=== PATIENT | male | born 1955 | race Caucasian/White ===

== ENCOUNTER 2023-06-09 10:18 | Outpatient (CLI) | payer MEDICARE, SELFPAY ==
[2023-06-09 11:12] LABS: Anion Gap 5 mmol/L (8-16); Blood Urea Nitrogen 16 mg/dL (9-20); Calcium 9.8 mg/dL (8.4-10.2); Carbon Dioxide 31 mmol/L (22-30); Chloride 100 mmol/L (98-107); Estimated Glomerular Filt Rate > 60; Glucose 95 mg/dL (65-110); Potassium 4.5 mmol/L (3.4-5.0); Sodium 136 mmol/L (137-145)
== END 2023-06-09 10:19 | disposition home or self-care (01) ==
LOC: ANHSURGERY 10:28
PROVIDERS: Anesthesiology; Visit Provider Otolaryngology
DX: I10 Essential (primary) hypertension (principal); Z01.818 Encounter for other preprocedural examination
CPT/HCPCS: 36415; 80048

== ENCOUNTER 2023-06-14 00:48 | Day surgery (SDC) | payer MEDICARE, SELFPAY ==
--- NOTE | 2023-06-03 14:33 | PC.NURSE ---
Report to the Outpatient Waiting Room, entrance under the green pavilion located off [facility], at time __0600 on date _06/14/23 . Planned Procedure Time: __729 . Time changes happen often and if your time is changed the preop area will call you the afternoon before. - You and your visitor will be asked to self-screen and do not enter if you have any COVID symptoms. - A mask is optional within the hospital at this time. Patients may have clear liquids (water, carbonated beverages, clear teas, apple juice) until 3 hours prior to surgery with a maximum of 20 ounces. - No food from midnight until time of surgery - Infants may have breast milk until 4 hours before surgery, infant formula 6 hours prior to surgery. - Children will be allowed to drink immediately following surgery. If applicable, please bring a bottle or sippy cup to assist with drinking. Juice, water, soda, and popsicles are readily available. For infants on formula, please bring formula the day of surgery. Pacifiers are allowed. Take the following medications with a SIP of water the morning of surgery: ___CARVEDILOL,ISOSORBIDE DO NOT STOP ANY OF YOUR OTHER PRESCRIPTION MEDICATIONS PRIOR TO SURGERY ?EXCEPT THE FOLLOWING Medications to discontinue per physician __ASPIRIN PER DR MCGRAW Please no make-up, nail irish, hairspray, perfume, deodorant, or body powder the day of surgery. No jewelry (including any body piercings) or valuables the day of surgery, leave them at home. Please take a shower or bath the night before, or the morning of, surgery with an antibacterial soap. Wear comfortable, loose fitting clothing. Children are encouraged to wear pajamas. - Jewelry must be removed prior to entering the operating room. Rings and piercings that are not removed may be cut off. - The hospital will not accept responsibility for valuables. - Please leave all valuables, including medications, at home the day of surgery. If you are going home after surgery, a licensed fork truck driver must drive you home. - NO public transportation without another adult if you receive anesthesia. - We recommend that an adult stay with you for 24 hours following discharge. - We also recommend that you do not drive, make important decision, drink alcoholic beverages, or take any drugs that were not prescribed by your health care provider for at least 24 hours after your discharge time. For Pediatric surgeries, we recommend two adults accompany the child home. Follow any additional instructions given to you from your surgeon. If you or anyone in your household have experienced Covid symptoms in the past week, please notify your surgeon or the nurse liaison at the phone number below for possible testing. Telephone instructions given to __PATIENT and asked if any additional questions and then verbalized understanding. Patient advised to call surgeon office or pre surgery nurse liaison [phone] if any additional questions.
[2023-06-03 14:46] VITALS: BMI 33.7
[2023-06-14] VITALS (7 sets, daily range): BP systolic 153–173; BP diastolic 89–106; PULSE 53–102; RESP 16–20; TEMP 36.4–36.5; O2SAT 96–100
[2023-06-14] MEDS: ACETAMINOPHEN 500 MG TABLET 1000 MG PO (07:01)
[2023-06-14] MEDS: LACTATED RINGERS 1,000 ML 30 ML IV CONT (07:10)
--- NOTE | 2023-06-14 07:11 | PM.IMHP ---
H&P: HPI History of Present Illness Date/Time: 06/14/23 07:11 Chief Complaint: Deviated septum Narrative: deviated septum Review of Systems Review of Systems: All systems reviewed & are unremarkable except as noted in HPI and below PMFSH Social History Social History Smoking packs per day: 1 Smoking cigarettes per day: 20.0 Years smoked: 25 Smoking pack-years: 25.00 Smoking status: Former smoker Tobacco type: cigarettes Smoking end date: 09/06/13 Alcohol intake: current Drinks per week: 6 Living arrangements: alone Spiritual care concerns: No Meds Home Medications and Allergies Home Medications Medication Instructions Recorded Confirmed Type aspirin 81 mg tablet,delayed 81 mg PO DAILY 06/03/23 06/14/23 History release (Adult Low Dose Aspirin) carvedilol 12.5 mg tablet 12.5 mg PO BID 06/03/23 06/14/23 History furosemide 20 mg tablet 20 mg PO DAILY 06/03/23 06/14/23 History isosorbide mononitrate 30 mg 30 mg PO DAILY 06/03/23 06/14/23 History tablet,extended release 24 hr losartan 100 mg tablet 100 mg PO DAILY 06/03/23 06/14/23 History pantoprazole 40 mg tablet,delayed 40 mg PO DAILY 06/03/23 06/14/23 History release rosuvastatin 40 mg tablet 40 mg PO DAILY 06/03/23 06/14/23 History Allergies Allergy/AdvReac Type Severity Reaction Status Date / Time No Known Allergies Allergy Verified 06/14/23 06:54 Exam Narrative: Right anterior septal deviation, bilateral turbinate hypertrophy, rest of exam wnl Assessment and Plan Assessment and plan (1) Deviated nasal septum: Code(s): J34.2 - Deviated nasal septum Status: Acute Plan Anthony here for septoplasty and turbinoplasty for bilateral septal deviation, turbinate enlargement and nasal dyspnea. r/b/a reviewed, pt understands and agrees to proceed, refer to outpt H&P for details.
[2023-06-14] MEDS: OXYMETAZOLINE HCL 0.05% NAS 15 ML BTL (*BKC) 1 SPRAY NASAL (07:12)
--- NOTE | 2023-06-14 07:13 | WPDHPUPDATE1 ---
History and Physical Update Update Date/Time: 06/14/23 07:13 History and Physical has been reviewed, including an updated exam of the patient. There are NO changes in the patient's condition. Risks, benefits, and alternatives have been discussed and questions answered. Patient agrees to proceed with procedure.
--- NOTE | 2023-06-14 07:19 | P.PNAN_ITS ---
Anes - Initial Pre Proc Eval Procedure: Operation Date: 06/14/23 07:30 Proposed Procedures p Septoplasty, - Ivan Grossman MD s Bilateral Turbinate Reduction - Ivan Grossman MD Date/Time: 06/14/23 07:19 Surgeon: Ivan Grossman MD Pre Op Diagnosis: deviated septum, turbinate hypertrophy Patient Data Age: 67 Gender: M Height: 1.78 m Weight: 106.6 kg Allergies Allergy/AdvReac Type Severity Reaction Status Date / Time No Known Allergies Allergy Verified 06/14/23 06:54 Home Medications Medication Instructions Recorded Confirmed Type aspirin 81 mg tablet,delayed 81 mg PO DAILY 06/03/23 06/14/23 History release (Adult Low Dose Aspirin) carvedilol 12.5 mg tablet 12.5 mg PO BID 06/03/23 06/14/23 History furosemide 20 mg tablet 20 mg PO DAILY 06/03/23 06/14/23 History isosorbide mononitrate 30 mg 30 mg PO DAILY 06/03/23 06/14/23 History tablet,extended release 24 hr losartan 100 mg tablet 100 mg PO DAILY 06/03/23 06/14/23 History pantoprazole 40 mg tablet,delayed 40 mg PO DAILY 06/03/23 06/14/23 History release rosuvastatin 40 mg tablet 40 mg PO DAILY 06/03/23 06/14/23 History Patient hx anesthesia problems: none Family hx anesthesia problems: none Results Review: All pre-operative results and documents have been reviewed as part of the pre- operative evaluation. [facility] Past Medical History Medical History (Updated 06/14/23 @ 07:19 by Chau Ferguson MD) CAD (coronary artery disease) NEHAL on CPAP Surgical History Surgical History History of coronary artery stent placement Social History Social History Smoking packs per day: 1 Smoking cigarettes per day: 20.0 Years smoked: 25 Smoking pack-years: 25.00 Smoking status: Former smoker Tobacco type: cigarettes Smoking end date: 09/06/13 Alcohol intake: current Drinks per week: 6 Living arrangements: alone Spiritual care concerns: No Anes - Eval Final PreProcedure Day of Procedure 06/14/23 07:19 Patient weight: obese Heart: regular rate and rhythm Lungs: clear to auscultation Airway: Mallampati scale class II Neurological: alert and oriented Last oral intake: >/= 8 hours ASA classification: III Emergent: no Anesthetic plan: proceed Anesthesia type and monitoring: general ETT and standard monitoring Results Review: All pre-operative results and documents have been reviewed as part of the pre- operative evaluation. Informed Consent: The patient's anesthetic plan and its attendant risks and benefits were discussed with the patient/family/POA. Questions were solicited and answers provided to the satisfaction of the patient/family/POA.
[2023-06-14] MEDS: ceFAZolin 2 GM/D5W 50 ML 2 GM/50 ML BAG IVPB (07:30)
[2023-06-14] MEDS: LIDO 1%/EPINEPHRINE 1:100,000 50 ML VIAL INFILTRATE (07:48)
--- NOTE | 2023-06-14 08:28 | P.OP_ITS ---
Procedure Note - Detailed Date of Procedure 06/14/23 Pre-op Diagnosis deviated septum, turbinate hypertrophy Post-op Diagnosis Same Procedure Performed Septoplasty, bilateral inferior turbinoplasty, endoscopic Surgeon Ivan Grossman MD Anesthesia General Indications Nasal dyspnea Findings Fracture of septal cartilage anteriorly, limiting extent of caudal resection. Right septal deviation addressed however. Turbinates outfractured, buck splints placed. Description of Procedure After obtaining informed consent and proper site verification the patient was brought to the operating room and placed on the operating table in the supine position. They were placed under general endotracheal anesthesia by the anesthesia provider. The patient was then draped in standard fashion for septoplasty and turbinoplasty. A timeout was performed and the correct patient and procedure were verified. The nasal cavity was injected with 1% lidocaine with 1-100,000 epinephrine and packed with afrin-soaked cottonoid pledgets. ? Attention was then directed to the nasal septum. A hemitransfixion incision was made in the left caudal septum and a mucoperichondrial flap was elevated in the usual fashion. The flap was elevated under endoscopic visualization and the remainder of the case was performed with endoscopic assistance. Using a D- knife, an incision was made through the cartilaginous septum with care to preser ve the appropriate caudal and dorsal ?L-strut? of cartilage. The cartilage was then disarticulated from the bony-cartilaginous junction and the deviated cartilage was removed. Further deviated bone and cartilage was removed from the maxillary crest and posterior bony septum with care to avoid injury to the mucoperichondrial flap using a combination of dissection and Jean-Claude-Saldaña forceps. Once this was completed, the hemitransfixion incision was closed using simple interrupted 4-0 chromic suture. A quilting stitch to reapproximate the mucoperichondrial flaps was then placed using 4-0 plain gut suture on a Barney needle. ? Next attention was directed to the turbinates. Using a 0? telescope and 2mm turbinate blade microdebrider, a stab incision was made in the anterior face of the turbinate and dissection was carried posterior to perform submucosal resection. Next the turbinate was outfractured using a blunt instrument. A similar procedure was then performed on the right-hand side without difficulty. Buck splints covered in mupirocin ointment were placed in the nasal cavity and secured to the membranous septum using a 3-0 Prolene suture. ?The patient was awakened from general anesthesia extubated in the operating room, and transported to the recovery room in stable condition without complication. Estimated Blood Loss 10 Drains No Packing Yes (buck splints) Pathology None sent Complications No immediate complications Condition Stable Disposition PACU
--- NOTE | 2023-06-14 08:46 | SUR.PHASEI ---
0845: Simple mask removed.
== END 2023-06-14 10:00 | disposition home or self-care (01) ==
PROVIDERS: Visit Provider Otolaryngology
PROC: (CPT 30520; principal; 2023-06-14 07:30)
PROC: (CPT 30520; 2023-06-14 07:30)
DX: J34.2 Deviated nasal septum (principal); J34.3 Hypertrophy of nasal turbinates; Z87.891 Personal history of nicotine dependence; Z79.82 Long term (current) use of aspirin; I25.10 Atherosclerotic heart disease of native coronary artery without angina pectoris; G47.33 Obstructive sleep apnea (adult) (pediatric); Z95.5 Presence of coronary angioplasty implant and graft; E66.9 Obesity, unspecified; Z68.34 Body mass index [BMI] 34.0-34.9, adult
CPT/HCPCS: 30520; 30140; A9270; J0690; J1100; J2250; J2405; J2704; J2710; J7120